=== PATIENT | female | born 1970 | race Two or more races ===

== ENCOUNTER 2016-10-31 11:26 | Emergency (ER) | payer MEDICAID ==
[~2016-10-31] VITALS: Ht 154.9 cm; Wt 65.8 kg
[2016-10-31] MEDS ORDERED: NKM (11:36)
[2016-10-31] MEDS ORDERED: Bacitracin Oint UD TOPIC ONE ×2 (12:13→12:30)
[2016-10-31] MEDS ORDERED: Tetanus/Diptheria/Pertussis Vaccine 0.5ml Syr IM ONE (12:15)
[2016-10-31] MEDS ORDERED: IBUPROFEN600 MG ORAL (12:16)
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
[2016-10-31 12:30] VITALS: BP 119/76
== END 2016-10-31 12:30 | disposition home or self-care (01) ==
LOC: EMR 11:50
DX: T23.291A Burn of second degree of multiple sites of right wrist and hand, initial encounter (principal); S61.214A Laceration without foreign body of right ring finger without damage to nail, initial encounter; X19.XXXA Contact with other heat and hot substances, initial encounter; Y93.9 Activity, unspecified; Y92.9 Unspecified place or not applicable; Z23 Encounter for immunization
CPT/HCPCS: 90471; 90715; 99284